=== PATIENT | female | born 1980 | race Caucasian/White ===

== ENCOUNTER 2018-01-29 23:45 | Emergency (ER) | payer BC, MEDICAID ==
[~2018-01-29] VITALS: Ht 157.5 cm; Wt 68.0 kg
[2018-01-30] MEDS ORDERED: LORAZEPAM 1MG TABLET PO ONE (02:30)
[2018-01-30 02:51] LABS: BASOPHILS % 0.9 % (0.0-2.0); EOSINOPHILS % 2.1 % (0.0-5.0); HEMATOCRIT. 37.6 % (36.0-48.0); HEMOGLOBIN. 12.7 g/dL (12.0-16.0); LYMPHOCYTES % 19.7 % (20.0-50.0); MEAN CORPUSCULAR HEMOGLOBIN 30.8 pg (28.0-32.0); MEAN CORPUSCULAR VOLUME 90.9 fL (81.0-99.0); MEAN PLATELET VOLUME 7.3 fl (7.4-10.4); MONOCYTES % 4.8 % (2.0-8.0); NEUTROPHILS % 72.5 % (40.0-76.0); PLATELET 342 x1000/uL (130-400); RED BLOOD CELL COUNT 4.13 mill/uL (4.2-5.4); RED CELL DISTRIBUTION WIDTH 13.2 % (11.6-14.6)
[2018-01-30 03:20] LABS: HCG SCREEN NEGATIVE
[2018-01-30 04:01] VITALS: BP 120/79
== END 2018-01-30 04:07 | disposition home or self-care (01) ==
LOC: ER 23:45
DX: F32.9 Major depressive disorder, single episode, unspecified (principal); N92.0 Excessive and frequent menstruation with regular cycle; R45.850 Homicidal ideations
CPT/HCPCS: 36415; 84703; 85025; 99284; Z7610